=== PATIENT | male | born 1960 | race Caucasian/White ===

== ENCOUNTER → 2017-03-28 | Day surgery (SDC) | payer BC ==
[~2017-03-28] MED LIST: AXIRON30 MG/1.5 TOP; DITROPAN5 MG PO; ZYRTEC10 M2 PO; [UNRECOGNIZED DRUG - OTHER] PO
--- NOTE | ~2017-03-28 | OR ---
Unit #: [id number] #: [id number] Patient: INOCENTE VÁZQUEZ [id number] [address] [address] [id number] O MR#: [id number] NAME: INOCENTE VÁZQUEZ ROOM: Date of Procedure: 03/28/2017 Admission Date: 03/28/2017 Surgeon: Jacoby Francisco M.D. : 1960 Attending Physician: Jacoby Francisco M.D. Primary Care Physician: Fuad Manzo M.D. OPERATIVE REPORT PREOPERATIVE DIAGNOSIS Urge incontinence. POSTOPERATIVE DIAGNOSIS Urge incontinence. PROCEDURES PERFORMED 1. Right InterStim battery exchange. 2. Left stage I and stage II InterStim placement. ANESTHESIA General. DESCRIPTION OF PROCEDURE After informed consent, he was taken to the operating room, placed in general anesthetic, positioned prone. His low buttock area and back were prepped and draped in the usual sterile fashion. His incision site for the right InterStim generator was opened sharply. The generator was disconnected from the lead and removed from the surgical field stimulation and checking his existing lead showed that it was working properly. It also showed he had a positive motor response on all 4 leads. A new InterStim generator was connected to the lead and the pocket for the previous generator was opened and made more deeper. The previous generator seemed to be more superficial. This pocket was irrigated with copious amount of antibiotic irrigation. The new generator was placed into the pocket and the incision was closed in multiple layers. The generator was synched to his remote and the incision was closed using Vicryl and Monocryl and Dermabond. Attention was then turned to the left side of the patient. Using bony landmarks and fluoroscopy, the S3 foramen was located. With stimulation, he had positive motor response with bellowing of the buttocks and plantar flexion of the great toe. The lead was placed using the curved stylet. With stimulation, he had positive motor response on all 4 leads. The lead was in good position in the PA standpoint as well as lateral films were obtained for permanent record. The left buttock was incised and a pocket was created using sharp and blunt dissection. This was for the generator placement. Copious amount of antibiotic irrigation was used and the generator was placed inside the pocket. The lead were tunneled over to the pocket using the trocar. The lead was connected to the generator and the incision was closed in multiple layers using Vicryl and Monocryl. The generator was then synched to his remote. 0.5% Marcaine was used for local anesthetic. All counts were correct at the end of the procedure. The patient tolerated the Unit #: [id number] #: [id number] Patient: INOCENTE VÁZQUEZ procedure well. He will be discharged home and return to see me as an outpatient for wound check. He will go home with pain medication and antibiotics. Dictated by... Isa Barboza/moraima TD: 03/29/2017 02:14 JOB #: [id number] OPERATIVE REPORT Page 1 of 1 X Jacoby Francisco MD X PROCEDURE OPERATIVE NOTE
--- NOTE | ~2017-03-28 | CR219 ---
[facility] A Service of [facility] & [facility] RADIOLOGY TEXT RESULTS PATIENT: INOCENTE VÁZQUEZ LOCATION: [facility] : 56 UNIT #: [id number] AGE: [address]: Jacoby Francisco MD SEX: M ORDER DR: [id number] [facility] [address] [facility] [place], [place] [address] [id number] O MR#: [id number] Acc #: [id number] NAME: INOCENTE VÁZQUEZ : 1960 SEX: M STUDY DATE/TIME: 03/28/2017 9:53 UNIT: [facility] ROOM: STUDY DESCRIPTION: CR Sacrum and Coccyx Min 2 Vie Attending Physician: Jacoby Francisco M.D. Ordering Physician: Jacoby Francisco M.D. Primary Care Physician: Fuad Manzo M.D. MEDICAL IMAGING REPORT This report is preliminary unless electronic signature is present EXAM Fluoroscopy up to 1 hour. 03/28/2017 HISTORY Nerve stimulator placement in the OR. FINDINGS Two spot fluoroscopic views were obtained of the sacrum during sacral nerve stimulator placement by Dr. Francisco. Fluoroscopy time 0.3 minutes was documented by the technologist. Generator device projects in the posterior margin mid sacrum on the lateral view, and on the frontal projection, leads are seen projecting over the right and left lower pelvis - sacral region. Please refer to the operative report for additional findings and recommendations. Dictated by... Chanelle Grey M.D. THIS IS AN ELECTRONICALLY VERIFIED REPORT Chaenlle Grey M.D. at 03/29/2017 7:12 AM Ana Lilia TD: 03/28/2017 15:26 JOB #: [id number] MEDICAL IMAGING REPORT Page 1 of 1 COPY
== END | disposition home or self-care (01) ==
LOC: CSUR 06:39
DX: N39.41 Urge incontinence (principal); E66.9 Obesity, unspecified; F17.200 Nicotine dependence, unspecified, uncomplicated; Z68.33 Body mass index [BMI] 33.0-33.9, adult; Z85.46 Personal history of malignant neoplasm of prostate; Z79.899 Other long term (current) drug therapy; Z90.79 Acquired absence of other genital organ(s); Z98.890 Other specified postprocedural states
CPT/HCPCS: 72220; 77003; C1767; C1778; C1787; J0690; J2250; J2370; J2710; J3010